=== PATIENT | female | born 1990 | race Caucasian/White ===

== ENCOUNTER 2018-01-16 14:22 | Emergency (ER) | payer SELFPAY ==
[2018-01-16] MEDS ORDERED: Phenaphthazine-PH Test Paper VI ONE (14:55)
[2018-01-16 15:08] VITALS: BMI 24.0
--- NOTE | 2018-01-16 17:11 | US ---
Date of service: 01/16/2018 PROCEDURE: Limited obstetrical ultrasound and biophysical profile HISTORY: BPP, JENNIFER COMPARISON: None TECHNIQUE: Standard protocol for this study/examination. FINDINGS: FINDINGS: Biophysical profile score 8/8 Based on the followin. breathing movements: 2/2 2. Gross body movement: 2/2 3. tone: 2/2 4. Qualitative amniotic fluid index: 2/2 Cephalic presentation. Anterior Placenta. No evidence of abruption or previa Gestational age derived from LMP 32 weeks 5 days. CHARLES 03/08/2018. Gestational age derived from the following biometric parameters 32 weeks 4 days. CHARLES 03/09/2018. Biparietal diameter 8.41 cm Head circumference 30.17 cm Abdominal circumference 26.99 cm Femur length 6.17 cm Estimated weight 1845 g Calculated cardiac rate 135 beats per min. Closed cervix measuring 4.04 cm IMPRESSION: Thirty-two weeks 4 days live intrauterine gestation. Biophysical profile score 8/8.
--- NOTE | 2018-01-16 17:26 | OBHP ---
Datetime: 01/16/2018 14:37 IP Adm Impression: , intrauterine IP Admit Plan: Observation/Evaluation Admit Comment, IP Provider: [facility] care- [facility] [phone] LMP: unknown 27 yo at 32.5 wks as per patient is c/o suspected rupture of membranes at about 12pm this aft ernoon. Patient reports having the sensation to urinate, and describes odorless, clear fluid since en. Patient moved from [place] to [place] 4 days ago. She saw a Engineering Production Liaison at the [facility] clinic for two visits during the duration of her thus far. Patient denied any vaginal bleeding, contractions, and reports + FM. Last sexual activity was today. OBGYNhx: x 3 w/o complications (, 2010-) PMH: neg Famhx: neg Sochx: no Tobacco, EtoH or drugs Surghx: neg Allergies: Gluten sensitivity ROS: neg for cp, sob, headache or blurred vision PE: Gen: well appearing female in no acute distress Cardio: s1s2 auscultated Resp: clear b/l Abd: BS+ Ext: nontender A/P: 31 yo at 32.5 wks 1. Rule out ROM- will perform NST, BPP, check if membranes are intact, and continue to observe. Case discussed with Dr. Castillo Addendum by Dr. Castillo - I have evaluated the patient independently and I agree with the above. quique ashley is a @ 32.5 wks, reports leaking of fluid. +FM, no vag bleeding, no dysuria, no contrati ons. Care in [place] with a avionics electronics technician group. Speculum exam - neg nitrazine, neg pooling. Closed on exam. F [id number] mod britni, +accels, no decels, TOCO = no contractions. BPP = 8/8, JENNIFER = 13. Pt ruled out for rup ture, discharge home, discharge precautions given. Patient encouraged to be seen in the next two week s with her new OB Randee Bales PGY-1 Extremities - PN: Normal Abdomen - PN: Normal Lungs - PN: Normal Heart - PN: Normal General - PN: Normal FHR - Baseline A Provider: 130 Membranes, Provider: Intact Pool Provider: Negative Nitrazine Provider: Negative Vital Signs Provider: Reviewed IP Chief Complaint: Suspected ruptured membranes NICHD Variability Prov Fetus A: Moderate 6-25bpm NICHD Decel Fetus A IP Provider: None Dilatation, Provider: closed
--- NOTE | 2018-01-16 17:28 | OBDCSUM ---
Datetime: 01/16/2018 17:02 Discharged to, Provider: Home Follow up at, Provider: [facility] Disch Instr Activity: Normal activity Disch Instr Diet: Regular Discharge Time: 01/16/2018 17:03 Disch Referrals: None Discharge Diagnosis Prov Other: rule out rupture
[2018-01-16 21:34] VITALS: BP 99/52; PULSE 82; RESP 18; TEMP 98.1; O2SAT 97
== END 2018-01-16 17:20 | disposition home or self-care (01) ==
LOC: H.EROB2 14:22
DX: O47.03 False labor before 37 completed weeks of gestation, third trimester (principal); Z3A.32 32 weeks gestation of pregnancy; O34.63 Maternal care for abnormality of vagina, third trimester; N89.8 Other specified noninflammatory disorders of vagina